=== PATIENT | female | born 1995 ===

== ENCOUNTER 2021-05-04 12:45 | Outpatient (CLI) | payer MEDICAID ==
[~2021-05-04] VITALS: Ht 160 cm; Wt 149.0 kg
[2021-05-04 12:43] VITALS: BP 118/72
== END 2021-05-04 16:20 | disposition home or self-care (01) ==
LOC: LDOP 12:45
PROVIDERS: ATTEND Obstetrics & Gynecology
DX: O42.913 Preterm premature rupture of membranes, unspecified as to length of time between rupture and onset of labor, third trimester (principal); Z3A.32 32 weeks gestation of pregnancy
CPT/HCPCS: 81001; 84112; 87086; 89060; 96360; 96372; 99211; J3105; J7120